=== PATIENT | female | born 1995 | race Two or more races ===

== ENCOUNTER 2017-12-04 18:52 | Emergency (ER) | payer OTHER ==
[~2017-12-04] VITALS: Ht 152.4 cm; Wt 50.8 kg
[2017-12-04] MEDS ORDERED: PRENATABS FA T1 EACH (19:47)
== END 2017-12-04 21:46 | disposition home or self-care (01) ==
LOC: ER 18:52
DX: J06.9 Acute upper respiratory infection, unspecified (principal)

== ENCOUNTER 2018-03-07 20:59 | Outpatient (CLI) | payer OTHER ==
[~2018-03-07 20:59] MED LIST: PRENATABS FA T1 EACH
== END 2018-03-08 10:16 | disposition home or self-care (01) ==
LOC: OBS/DEL 20:59
DX: O26.893 Other specified pregnancy related conditions, third trimester (principal); K52.89 Other specified noninfective gastroenteritis and colitis; Z34.03 Encounter for supervision of normal first pregnancy, third trimester

== ENCOUNTER 2018-05-04 06:27 | Inpatient (IN) | payer OTHER ==
[~2018-05-04] VITALS: Ht 152.4 cm; Wt 138.0 kg
== END 2018-05-07 12:50 | disposition home or self-care (01) | DRG 788 ==
LOC: LDR 06:27 → OB/GYN 18:42
PROVIDERS: Obstetrics & Gynecology
PROC: 4A1HXCZ Monitoring of Products of Conception, Cardiac Rate, External Approach (ICD-10-PCS; 2018-05-04)
PROC: 4A033R1 Measurement of Arterial Saturation, Peripheral, Percutaneous Approach (ICD-10-PCS; 2018-05-04)
PROC: 10D00Z1 Extraction of Products of Conception, Low, Open Approach (ICD-10-PCS; principal; 2018-05-04 16:00)
DX: O33.5XX0 Maternal care for disproportion due to unusually large fetus, not applicable or unspecified (principal); O62.1 Secondary uterine inertia; Z3A.39 39 weeks gestation of pregnancy; Z37.0 Single live birth